=== PATIENT | male | born 1975 | race African-American/Black ===

== ENCOUNTER 2016-10-27 14:35 | Inpatient (IN) | payer OTHER ==
[2016-10-27] VITALS (7 sets, daily range): BP systolic 127–163; BP diastolic 43–95
[~2016-10-27] VITALS: Ht 180.3 cm; Wt 72.6 kg
[~2016-10-27 14:35] MED LIST: HUMULIN R100 UNIT/1 SUBQ; LANTUS SOL100 UNIT/1 SUBQ
[2016-10-27] MEDS ORDERED: Famotidine 20 MG/ 2ML VIAL IVP ONE (15:00)
[2016-10-27 15:29] LABS: MEAN CORPUSCULAR HEMOGLOBIN 28.1 PG (27.0-31.0); MEAN CORPUSCULAR HGB CONC 32.2 G/DL (32.0-36.0); MEAN CORPUSCULAR VOLUME 87 FL (80-99); MEAN PLATELET VOLUME 9.2 FL (6.5-10.1); PLATELET COUNT 334 K/UL (150-450); RED BLOOD COUNT 6.33 M/UL (4.70-6.10); RED CELL DISTRIBUTION WIDTH 12.8 % (11.6-14.8); WHITE BLOOD COUNT 18.2 K/UL (4.8-10.8)
[2016-10-27 16:36] LABS: ABG PCO2 18.4 mmHg (35.0-45.0)
[2016-10-27 16:37] LABS: ABG ALLEN TEST POSITIVE
[2016-10-27 16:39] LABS: ALANINE AMINOTRANSFERASE 29 U/L (3-41); ALBUMIN/GLOBULIN RATIO 1.2 (1.0-2.7); ASPARTATE AMINO TRANSFERASE 14 U/L (5-40); CALCIUM 10.3 mg/dL (8.6-10.2); CHLORIDE 90 mEQ/L (98-107); CREATININE 1.5 mg/dL (0.7-1.2); HEMOLYSIS 0; LIPASE 31 U/L (< 60); MAGNESIUM 2.2 mg/dL (1.7-2.5); SODIUM 136 mEQ/L (135-145); TOTAL PROTEIN 9.4 g/dL (6.6-8.7)
[2016-10-27 16:44] LABS: ANION GAP 37 (5-15); POTASSIUM 5.9 mEQ/L (3.4-4.9)
[2016-10-27 16:51] LABS: CARBON DIOXIDE 9 mEQ/L (20-30); GLOMERULAR FILTRATION RATE > 60 mL/min (>60)
[2016-10-27 16:56] LABS: BAND NEUTROPHILS % (MANUAL) 0 % (0-8); BASOPHILS % (MANUAL) 0 % (0-2); EOSINOPHILS % (MANUAL) 0 % (0-3); LYMPHOCYTES % (MANUAL) 9 % (20-45); NEUTROPHILS % (MANUAL) 89 % (45-75); PLATELET ESTIMATE ADEQUATE; TOTAL CELLS COUNTED 100
[2016-10-27 16:57] LABS: PLATELET MORPHOLOGY NORMAL
--- NOTE | 2016-10-27 17:08 | Emergency Room Report ---
History of Present Illness General Chief Complaint: General Complaint Source: EMS Present Illness HPI 41-year-old male presents ED for evaluation. Patient notes abdominal pain and vomiting x1 day. Per EMS Accu-Chek in the 400s. Patient has history of diabetes and states he is compliant with his medications but states medications recently changed. Pain is epigastric, 7/10, burning, nonradiating. No aggravating or relieving factors. Denies chest pain or shortness of breath. Denies fevers or chills. Denies any other associated symptom Allergies: Coded Allergies: No Known Allergies (Unverified , 10/27/16) Patient History Past Medical History: DM Past Surgical History: none Pertinent Family History: none Social History: Denies: alcohol use, drug use, smoking Immunizations: UTD Reviewed Nursing Documentation: PMH: Agreed, PSxH: Agreed Nursing Documentation-PMH Hx Diabetes: Yes Review of Systems All Other Systems: negative except mentioned in HPI Physical Exam Vital Signs Date Time Temp Pulse Resp B/P Pulse Ox O2 Delivery O2 Flow Rate FiO2 10/27/16 14:31 97.2 100 18 136/80 99 Room Air Sp02 EP Interpretation: reviewed, normal General Appearance: no apparent distress, alert, GCS 15, non-toxic Head: normocephalic, atraumatic Eyes: bilateral eye PERRL, bilateral eye normal inspection ENT: hearing grossly normal, normal pharynx, no angioedema, normal voice Neck: full range of motion, supple/symm/no masses Respiratory: chest non-tender, lungs clear, normal breath sounds, speaking full sentences Cardiovascular #1: regular rate, rhythm, no edema Cardiovascular #2: 2+ carotid (R), 2+ carotid (L), 2+ radial (R), 2+ radial (L) , 2+ dorsalis pedis (R), 2+ dorsalis pedis (L) Gastrointestinal: normal bowel sounds, non tender, soft, non-distended, no guarding, no rebound Rectal: deferred Genitourinary: normal inspection, no CVA tenderness Musculoskeletal: back normal, gait/station normal, normal range of motion, non- tender Neurologic: alert, oriented x3, responsive, motor strength/tone normal, sensory intact, speech normal Psychiatric: judgement/insight normal, memory normal, mood/affect normal, no suicidal/homicidal ideation Reflexes: 3+ bicep (R), 3+ bicep (L), 3+ tricep (R), 3+ tricep (L), 3+ knee (R) , 3+ knee (L) Skin: normal color, no rash, warm/dry, well hydrated Lymphatic: no adenopathy Procedures Critical Care Time Critical Care Time i. I feel this is a highly complex case requiring extensive working including EKG/Rhythm strip, Xray/CT/US, Blood/urine lab work, repeat exams while in ED, and administration of strong opiates/narcotics for pain control, admission to hospital or close patient follow up. Total time: 30 min bedside evaluation and treatment excludes procedures (EKG). Reason for critical care: Hyperglycemia, vomiting, DKA Possible complications: hypotension, hypertension, CO, shock, arrhythmias, metabolic acidosis, end organ damage, respiratory failure. Interventions: Labs, IV fluids, EKG, insulin bolus, insulin drip Course: Patient brought in for vomiting, elevated Accu-Chek. Patient given IV fluids, Pepcid, Zofran. Glucose greater than 400 with elevated anion gap, low bicarbonate. Positive ketones. ABG shows acidosis. Insulin bolus given. Insulin drip started Consultations: nursing staff, EMS, family Performed by: Dr Cordova Tolerated well condition = critical j. because of unstable vital signs this patient had a condition that could potentially threaten life or limb. I feel this is a critical patient who required my full attention while patient was considered critical. Total Critical Care Time excluding procedures was greater than 35 minutes Medical Decision Making Diagnostic Impression: Primary Impression: DKA (diabetic ketoacidoses) Qualified Codes: E13.10 - Other specified diabetes mellitus with ketoacidosis without coma Additional Impression: Gastritis Qualified Codes: K29.01 - Acute gastritis with bleeding ER Course Hospital Course 41-year-old male presenting to ED with vomiting, elevated accuceck Differential diagnoses include: ETOH/drug ingestion, sepsis, DKA Clinical course Patient placed on stretcher. On air sampling and monitoring. After initial history and physical I ordered labs, 2 L of IV fluids, pecpid, zofran Labs-glucose greater than 400, anion gap elevated, bicarbonate low, Leukocytosis noted. ABG shows acidosis. + ketones Given 2 L of IV fluids, 2 more liters are ordered and insulin drip started. Case discussed with Dr. Newman and he agreed to accept the patient to his service for further care and support i. I feel this is a highly complex case requiring extensive working including EKG/Rhythm strip, Xray/CT/US, Blood/urine lab work, repeat exams while in ED, and administration of strong opiates/narcotics for pain control, admission to hospital or close patient follow up. j. because of unstable vital signs this patient had a condition that could potentially threaten life or limb. I feel this is a critical patient who required my full attention while patient was considered critical. Total Critical Care Time excluding procedures was greater than 35 minutes diagnosis - DKA, gastritis admitted to ICU in critical condition Labs Test 10/27/16 15:00 10/27/16 16:09 10/27/16 16:26 White Blood Count 18.2 K/UL (4.8-10.8) Red Blood Count 6.33 M/UL (4.70-6.10) Hemoglobin 17.8 G/DL (14.2-18.0) Hematocrit 55.3 % (42.0-52.0) Mean Corpuscular Volume 87 FL (80-99) Mean Corpuscular Hemoglobin 28.1 PG (27.0-31.0) Mean Corpuscular Hemoglobin Concent 32.2 G/DL (32.0-36.0) Red Cell Distribution Width 12.8 % (11.6-14.8) Platelet Count 334 K/UL (150-450) Mean Platelet Volume 9.2 FL (6.5-10.1) Neutrophils (%) (Auto) % (45.0-75.0) Lymphocytes (%) (Auto) % (20.0-45.0) Monocytes (%) (Auto) % (1.0-10.0) Eosinophils (%) (Auto) % (0.0-3.0) Basophils (%) (Auto) % (0.0-2.0) Differential Total Cells Counted 100 Neutrophils % (Manual) 89 % (45-75) Lymphocytes % (Manual) 9 % (20-45) Monocytes % (Manual) 2 % (1-10) Eosinophils % (Manual) 0 % (0-3) Basophils % (Manual) 0 % (0-2) Band Neutrophils 0 % (0-8) Platelet Estimate Adequate Platelet Morphology Normal Red Blood Cell Morphology Normal Sodium Level 136 mEQ/L (135-145) Potassium Level 5.9 mEQ/L (3.4-4.9) Chloride Level 90 mEQ/L (98-107) Carbon Dioxide Level 9 mEQ/L (20-30) Anion Gap 37 (5-15) Blood Urea Nitrogen 18 mg/dL (7-23) Creatinine 1.5 mg/dL (0.7-1.2) Estimat Glomerular Filtration Rate > 60 mL/min (>60) Glucose Level 443 mg/dL (74-106) Calcium Level 10.3 mg/dL (8.6-10.2) Magnesium Level 2.2 mg/dL (1.7-2.5) Total Bilirubin 0.5 mg/dL (0.0-1.2) Aspartate Amino Transf (AST/SGOT) 14 U/L (5-40) Alanine Aminotransferase (ALT/SGPT) 29 U/L (3-41) Alkaline Phosphatase 276 U/L (40-129) Total Protein 9.4 g/dL (6.6-8.7) Albumin 5.3 g/dL (3.5-5.2) Globulin 4.1 g/dL Albumin/Globulin Ratio 1.2 (1.0-2.7) Lipase 31 U/L (< 60) Acetone Level Positive-large (NEGATIVE) Arterial Blood pH 7.127 (7.350-7.450) Arterial Blood Partial Pressure CO2 18.4 mmHg (35.0-45.0) Arterial Blood Partial Pressure O2 112.0 mmHg (75.0-100.0) Arterial Blood HCO3 5.9 mmol/L (22.0-26.0) Arterial Blood Oxygen Saturation 97.0 % (92.0-98.0) Arterial Blood Base Excess -21.0 Dax Test Positive Last Vital Signs Date Time Temp Pulse Resp B/P Pulse Ox O2 Delivery O2 Flow Rate FiO2 10/27/16 15:38 97.8 85 16 163/95 100 Room Air Status: improved Disposition: ADMITTED INPATIENT Condition: Critical Referrals: DASHA GRAFFREFERRING (PCP) ELIECER CORDOVA M.D. Oct 27, 2016 17:08
[2016-10-27] MEDS ORDERED: Morphine Sulfate 4mg/ml Inj IVP PRN (17:45)
[2016-10-27] MEDS ORDERED: LORazepam Inj 2mg/ml 1ml IV PRN (17:45)
[2016-10-27] MEDS ORDERED: Miralax 17gm pkt ORAL PRN (17:45)
[2016-10-27] MEDS ORDERED: Insulin Rate Change 1 Each MISC PRN (17:45)
[2016-10-27] MEDS ORDERED: DuoNeb 0.5-3(2.5)mg/3ml neb HHN PRN (17:45)
[2016-10-27] MEDS ORDERED: Nitroglycerin Subl 0.4mg tab (Bottle Of 25) SL PRN (17:45)
[2016-10-27] MEDS ORDERED: Morphine Sulfate 4mg/ml Inj IVP ONE (17:45)
[2016-10-27] MEDS: Heparin 5000 units/ml inj SUBQ SCH (21:12)
[2016-10-28] VITALS (24 sets, daily range): BP systolic 107–145; BP diastolic 57–79
[2016-10-28 05:10] LABS: BILIRUBIN,DIRECT 0.1 mg/dL (0.1-0.3); PHOSPHORUS 2.2 mg/dL (2.5-4.8)
[2016-10-28 06:11] LABS: ANION GAP 26 (5-15); CALCIUM 10.1 mg/dL (8.6-10.2); CARBON DIOXIDE 12 mEQ/L (20-30); CHLORIDE 102 mEQ/L (98-107); CREATININE 1.2 mg/dL (0.7-1.2); GLOMERULAR FILTRATION RATE > 60 mL/min (>60); HEMOLYSIS 0; SODIUM 140 mEQ/L (135-145)
[2016-10-28] MEDS: Pantoprazole Inj IVP SCH (08:03)
[2016-10-28] MEDS: Heparin 5000 units/ml inj SUBQ SCH ×2 (08:04→21:13)
--- NOTE | 2016-10-28 10:04 | Pulmonolgy Critical Care Note ---
Critical Care - Asmt/Plan Problems: (1) DKA (diabetic ketoacidoses) (2) Gastritis Respiratory: monitor respiratory rate, CXR Renal: F/U I&O, other - change IV fluid to D5 1/2 Ns at 100 cc.hour Gastrointestinal: start feedings Endocrine: monitor blood sugar, continue sliding scale insulin - and insulind drip until anion gap closes Neurologic: PRN Morphine Time Spent (Minutes): 40 Notes Reviewed: assembler skylights, cardio Discussed with: nurses, consultants, case packer and sealerassociate sales manager - Objective Last 24 Hour Vital Signs Date Time Temp Pulse Resp B/P Pulse Ox O2 Delivery O2 Flow Rate FiO2 10/28/16 09:00 77 20 123/69 98 Room Air 10/28/16 08:00 86 10/28/16 08:00 76 19 133/77 98 Room Air 10/28/16 07:00 97.3 80 20 126/73 98 Room Air 10/28/16 06:00 97.4 88 21 133/79 98 Room Air 10/28/16 05:00 87 20 122/69 98 Room Air 10/28/16 04:00 85 20 122/69 98 Room Air 10/28/16 04:00 83 10/28/16 03:00 85 20 133/70 98 Room Air 10/28/16 02:00 85 20 116/66 98 Room Air 10/28/16 01:00 86 18 117/77 98 Room Air 10/28/16 00:00 87 18 136/59 98 Room Air 10/28/16 00:00 90 10/28/16 00:00 97.6 86 18 117/77 98 Room Air 10/27/16 23:00 88 18 138/79 98 Room Air 10/27/16 22:00 98 18 127/77 99 Room Air 10/27/16 21:00 93 19 132/74 100 Room Air 10/27/16 20:00 101 18 147/43 100 Room Air 10/27/16 19:08 107 10/27/16 19:00 97.2 93 18 139/80 100 Room Air 10/27/16 18:52 97.8 72 15 147/74 99 Room Air 10/27/16 18:21 97.8 10/27/16 18:05 97.8 71 15 158/84 99 Room Air 10/27/16 15:38 97.8 85 16 163/95 100 Room Air 10/27/16 14:31 97.2 100 18 136/80 99 Room Air Status: awake HEENT: atraumatic Neck: full ROM Lungs: clear Heart: HR/BP stable, HR/BP unstable Abdomen: soft, non-tender Extremities: no C/C/E Decubiti: location, stage Accucheck: 136 Critical Care - Subjective ICU Day: 2 Condition: critical EKG Rhythm: Sinus Rhythm Fluids: NS 150 cc.hour Drips: insulin drip I&O: Intake and Output 10/27/16 10/28/16 19:00 07:00 Intake Total 0 ml 3653.92 ml Output Total 700 ml Balance 0 ml 2953.92 ml Intake Oral 0 ml IV Total 3653.92 ml Output Urine Total 500 ml Other 200 ml # Voids 1 Labs: Laboratory Tests Test 10/27/16 15:00 10/27/16 16:09 10/27/16 16:26 10/28/16 03:20 White Blood Count 18.2 K/UL (4.8-10.8) H Red Blood Count 6.33 M/UL (4.70-6.10) H Hemoglobin 17.8 G/DL (14.2-18.0) Hematocrit 55.3 % (42.0-52.0) H Mean Corpuscular Volume 87 FL (80-99) Mean Corpuscular Hemoglobin 28.1 PG (27.0-31.0) Mean Corpuscular Hemoglobin Concent 32.2 G/DL (32.0-36.0) Red Cell Distribution Width 12.8 % (11.6-14.8) Platelet Count 334 K/UL (150-450) Mean Platelet Volume 9.2 FL (6.5-10.1) Neutrophils (%) (Auto) % (45.0-75.0) Lymphocytes (%) (Auto) % (20.0-45.0) Monocytes (%) (Auto) % (1.0-10.0) Eosinophils (%) (Auto) % (0.0-3.0) Basophils (%) (Auto) % (0.0-2.0) Differential Total Cells Counted 100 Neutrophils % (Manual) 89 % (45-75) H Lymphocytes % (Manual) 9 % (20-45) L Monocytes % (Manual) 2 % (1-10) Eosinophils % (Manual) 0 % (0-3) Basophils % (Manual) 0 % (0-2) Band Neutrophils 0 % (0-8) Platelet Estimate Adequate Platelet Morphology Normal Red Blood Cell Morphology Normal Sodium Level 136 mEQ/L (135-145) 140 mEQ/L (135-145) Potassium Level 5.9 mEQ/L (3.4-4.9) H 5.0 mEQ/L (3.4-4.9) H Chloride Level 90 mEQ/L (98-107) L 102 mEQ/L (98-107) Carbon Dioxide Level 9 mEQ/L (20-30) *L 12 mEQ/L (20-30) L Anion Gap 37 (5-15) H 26 (5-15) H Blood Urea Nitrogen 18 mg/dL (7-23) 15 mg/dL (7-23) Creatinine 1.5 mg/dL (0.7-1.2) H 1.2 mg/dL (0.7-1.2) Estimat Glomerular Filtration Rate > 60 mL/min (>60) > 60 mL/min (>60) Glucose Level 443 mg/dL (74-106) H 152 mg/dL (74-106) #H Calcium Level 10.3 mg/dL (8.6-10.2) H 10.1 mg/dL (8.6-10.2) Magnesium Level 2.2 mg/dL (1.7-2.5) Total Bilirubin 0.5 mg/dL (0.0-1.2) 0.4 mg/dL (0.0-1.2) Aspartate Amino Transf (AST/SGOT) 14 U/L (5-40) 18 U/L (5-40) Alanine Aminotransferase (ALT/SGPT) 29 U/L (3-41) 22 U/L (3-41) Alkaline Phosphatase 276 U/L (40-129) H 258 U/L (40-129) H Total Protein 9.4 g/dL (6.6-8.7) H 8.0 g/dL (6.6-8.7) Albumin 5.3 g/dL (3.5-5.2) H 4.5 g/dL (3.5-5.2) Globulin 4.1 g/dL Albumin/Globulin Ratio 1.2 (1.0-2.7) Lipase 31 U/L (< 60) Acetone Level Positive-large (NEGATIVE) Arterial Blood pH 7.127 (7.350-7.450) Arterial Blood Partial Pressure CO2 18.4 mmHg (35.0-45.0) *L Arterial Blood Partial Pressure O2 112.0 mmHg (75.0-100.0) H Arterial Blood HCO3 5.9 mmol/L (22.0-26.0) L Arterial Blood Oxygen Saturation 97.0 % (92.0-98.0) Arterial Blood Base Excess -21.0 Dax Test Positive Prothrombin Time 10.0 SEC (9.30-11.50) Prothromb Time International Ratio 1.0 (0.9-1.1) Activated Partial Thromboplast Time 27 SEC (23-33) Phosphorus Level 2.2 mg/dL (2.5-4.8) L Direct Bilirubin 0.1 mg/dL (0.1-0.3) JOESPH WILSON Oct 28, 2016 10:04
[2016-10-28] MEDS: D5 1/2NS 1,000 ML IV SCH ×2 (10:34→21:07)
[2016-10-28] MEDS: Insulin Rate Change 1 Each MISC PRN ×8 (15:15→23:06)
--- NOTE | 2016-10-28 19:00 | Consultation ---
History of Present Illness General Date patient seen: Oct 28, 2016 Chief Complaint: General Complaint Referring physician: Trent Reason for Consultation: Hyperkalemia Present Illness HPI 41-year-old male presents to ED for evaluation. Patient notes abdominal pain and vomiting x1 day. Per EMS Accu-Chek in the 400s. Patient has history of diabetes and states he is compliant with his medications but states medications recently changed. Pain is epigastric, 7/10, burning, nonradiating. No aggravating or relieving factors. Denies chest pain or shortness of breath. Denies fevers or chills. Denies any other associated symptom Allergies: Coded Allergies: No Known Allergies (Unverified , 10/27/16) Medication History Scheduled Insulin Glargine (Lantus), 0 SUBQ BEDTIME, (Reported) Lurasidone Hcl (Latuda), 120 MG PO DAILY, (Reported) Miscellaneous Medications Insulin Regular, Human (Humulin R), 0 SUBQ, (Reported) Patient History Healthcare decision maker N Resuscitation status Full Code Advanced Directive on File No Past Medical/Surgical History Past Medical/Surgical History: (1) Diabetes Review of Systems All Other Systems: negative except mentioned in HPI Physical Exam General Appearance: no apparent distress, alert Lines, tubes and drains: peripheral HEENT: normocephalic, atraumatic Neck: non-tender, normal alignment, supple, normal inspection Respiratory/Chest: normal breath sounds, no respiratory distress Cardiovascular/Chest: normal rate, regular rhythm, no JVD Abdomen: soft, no organomegaly Extremities: normal range of motion, non-tender, normal inspection, no calf tenderness, normal capillary refill Neurologic: alert, oriented x 3, responsive, normal mood/affect Last 24 Hour Vital Signs Date Time Temp Pulse Resp B/P Pulse Ox O2 Delivery O2 Flow Rate FiO2 10/28/16 18:00 75 16 145/77 100 Room Air 10/28/16 17:00 74 17 112/70 100 Room Air 10/28/16 16:00 71 10/28/16 16:00 96.8 71 14 112/70 100 Room Air 10/28/16 15:00 75 15 118/65 100 Room Air 10/28/16 14:00 85 17 138/64 99 Room Air 10/28/16 13:00 73 17 124/69 99 Room Air 10/28/16 12:00 80 10/28/16 12:00 97.5 71 20 124/76 100 Room Air 10/28/16 11:00 76 19 107/57 99 Room Air 10/28/16 10:00 69 20 124/72 99 Room Air 10/28/16 09:00 77 20 123/69 98 Room Air 10/28/16 08:00 86 10/28/16 08:00 76 19 133/77 98 Room Air 10/28/16 07:00 97.3 80 20 126/73 98 Room Air 10/28/16 06:00 97.4 88 21 133/79 98 Room Air 10/28/16 05:00 87 20 122/69 98 Room Air 10/28/16 04:00 85 20 122/69 98 Room Air 10/28/16 04:00 83 10/28/16 03:00 85 20 133/70 98 Room Air 10/28/16 02:00 85 20 116/66 98 Room Air 10/28/16 01:00 86 18 117/77 98 Room Air 10/28/16 00:00 87 18 136/59 98 Room Air 10/28/16 00:00 90 10/28/16 00:00 97.6 86 18 117/77 98 Room Air 10/27/16 23:00 88 18 138/79 98 Room Air 10/27/16 22:00 98 18 127/77 99 Room Air 10/27/16 21:00 93 19 132/74 100 Room Air 10/27/16 20:00 101 18 147/43 100 Room Air 10/27/16 19:08 107 10/27/16 19:00 97.2 93 18 139/80 100 Room Air Intake and Output 10/27/16 10/28/16 19:00 07:00 Intake Total 0 ml 3656.92 ml Output Total 700 ml Balance 0 ml 2956.92 ml Intake Oral 0 ml IV Total 3656.92 ml Output Urine Total 500 ml Other 200 ml # Voids 1 Laboratory Tests Test 10/28/16 03:20 Prothrombin Time 10.0 SEC (9.30-11.50) Prothromb Time International Ratio 1.0 (0.9-1.1) Activated Partial Thromboplast Time 27 SEC (23-33) Sodium Level 140 mEQ/L (135-145) Potassium Level 5.0 mEQ/L (3.4-4.9) H Chloride Level 102 mEQ/L (98-107) Carbon Dioxide Level 12 mEQ/L (20-30) L Anion Gap 26 (5-15) H Blood Urea Nitrogen 15 mg/dL (7-23) Creatinine 1.2 mg/dL (0.7-1.2) Estimat Glomerular Filtration Rate > 60 mL/min (>60) Glucose Level 152 mg/dL (74-106) #H Calcium Level 10.1 mg/dL (8.6-10.2) Phosphorus Level 2.2 mg/dL (2.5-4.8) L Total Bilirubin 0.4 mg/dL (0.0-1.2) Direct Bilirubin 0.1 mg/dL (0.1-0.3) Aspartate Amino Transf (AST/SGOT) 18 U/L (5-40) Alanine Aminotransferase (ALT/SGPT) 22 U/L (3-41) Alkaline Phosphatase 258 U/L (40-129) H Total Protein 8.0 g/dL (6.6-8.7) Albumin 4.5 g/dL (3.5-5.2) Height (Feet): 5 Height (Inches): 11.00 Weight (Pounds): 160 Medications Current Medications Medications (Trade) Dose Ordered Sig/Estrellita Route PRN Reason Start Time Stop Time Status Last Admin Dose Admin Acetaminophen (Tylenol) 650 mg Q4H PRN ORAL T>100.5 10/27/16 17:45 11/26/16 17:44 Albuterol/ Ipratropium (DuoNeb 0.5-3(2.5)mg/3ml) 3 ml Q4H PRN HHN Shortness of Breath 10/27/16 17:45 11/01/16 17:44 Dextrose (Dextrose 50%) PRN PRN IV HYPOGLYCEMIA 10/28/16 13:00 11/27/16 12:59 Dextrose/Sodium Chloride (D5 0.45% NS) 1,000 ml @ 100 mls/hr Q10H IV 10/28/16 11:00 11/27/16 10:59 10/28/16 10:34 Heparin Sodium (Porcine) (Heparin 5000 units/ml) 5,000 units EVERY 12 HOURS SUBQ 10/27/16 21:00 11/26/16 20:59 10/28/16 08:04 Insulin Human Regular (NovoLIN R) 5 units PRN PRN IV BS 200-299 10/28/16 13:00 11/27/16 12:59 Insulin Human Regular (NovoLIN R) 10 units PRN PRN IV BS=>300 10/28/16 13:00 11/27/16 12:59 Insulin Human Regular/Sodium Chloride (NovoLIN R/ Sodium Chloride) 101 ml @ 0 mls/hr Q24H IV 10/28/16 13:17 11/27/16 12:59 10/28/16 13:36 Lorazepam (Ativan 2mg/ml 1ml) 2 mg Q2H PRN IV agitation 10/27/16 17:45 11/03/16 17:44 Miscellaneous Medication 1 ea 1 ea PRN PRN MISC Per rx protocol 10/28/16 13:00 11/27/16 12:59 10/28/16 18:26 Morphine Sulfate (Morphine Sulfate) 4 mg Q4H PRN IVP Severe Pain (Pain Scale 7-10) 10/27/16 17:45 11/03/16 17:44 Nitroglycerin (Ntg) 0.4 mg Q5M PRN SL Prn Chest Pain 10/27/16 17:45 11/26/16 17:44 Ondansetron HCl (Zofran) 4 mg Q6H PRN IVP Nausea & Vomiting 10/27/16 17:45 11/26/16 17:44 10/27/16 22:18 Pantoprazole 40 mg 40 mg DAILY IVP 10/28/16 09:00 11/27/16 08:59 10/28/16 08:03 Polyethylene Glycol (Miralax) 17 gm DAILYPRN PRN ORAL Constipation 10/27/16 17:45 11/26/16 17:44 Assessment/Plan Problem List: (1) Hyperglycemia ICD Codes: R73.9 - Hyperglycemia, unspecified SNOMED: 91470675 (2) DKA (diabetic ketoacidoses) ICD Codes: E13.10 - Other specified diabetes mellitus with ketoacidosis without coma SNOMED: 011491336, [id number] Qualifiers: Qualified Codes: E13.10 - Other specified diabetes mellitus with ketoacidosis without coma (3) Gastritis ICD Codes: K29.70 - Gastritis, unspecified, without bleeding SNOMED: 0715020, [id number] Qualifiers: Qualified Codes: K29.01 - Acute gastritis with bleeding Assessment/Plan Monitor BS Monitor lytes and correct as needed DVT prophylaxis with heparin Diabetic diet AM labs Marika Mckenna N.P. Oct 28, 2016 19:00
--- NOTE | 2016-10-28 22:28 | History and Physical Report ---
DATE OF ADMISSION: 10/27/2016 TIME: 2 p.m. CONSULTANTS: 1. Thomas Newman D.O.. 2. Lorena Reyes M.D. CHIEF COMPLAINT: Weakness, lethargy, and DKA. BRIEF HISTORY: This is a 41-year-old male who lives at home with a history of diabetes, who apparently had been getting weaker for the past week. Yesterday became very weak and came to [place], diagnosed with DKA, weakness, and gastritis, admitted to the ICU for further care. Currently, calm in bed, slightly weak. No other complaint. PAST MEDICAL HISTORY: Diabetes and bipolar. PAST SURGICAL HISTORY: Denies. MEDICATIONS: Insulin NPH, Novolin, dextrose insulin, Protonix, heparin, Ativan, Zofran, MiraLAX, morphine, and Tylenol. ALLERGIES: Denies. SOCIAL HISTORY: No smoking. Occasional alcohol. Positive marijuana use. REVIEW OF SYSTEMS: No chest pain or shortness of breath. No nausea, vomiting or diarrhea. PHYSICAL EXAMINATION: GENERAL: Calm in bed, alert and oriented x3. No acute distress. VITAL SIGNS: Temperature 97 degrees, pulse 85, respiratory rate 17, and blood pressure 130/64. CARDIOVASCULAR: No murmur. LUNGS: Distant and clear. ABDOMEN: Positive bowel sounds. Soft, nontender and nondistended. EXTREMITIES: No clubbing, cyanosis or edema. NEUROLOGIC: The patient moves all extremities, but slightly weak. LABORATORY AND DIAGNOSTIC DATA: White count 18, otherwise CBC is normal. BMP show potassium 5, BUN and creatinine 15/1.2, and glucose 132. INR is 1.0. Urine toxicology show acetone level initially is positive. ASSESSMENT: 1. Diabetic ketoacidosis. 2. Weakness. 3. Gastritis. 4. Leukocytosis. 5. Bipolar. PLAN: Continue pre-medications. Endocrine will follow. Titrate blood sugar. OT/PT. Dietary evaluation. CBC and BMP in the morning. Dr. Pina, Dr. Reyes, Dr. Ghotra, and Dr. Crespo to consult. We will continue to follow the patient. Thomas Newman D.O. DR: ALINE JOB#: [id number] CC:
[2016-10-28] MEDS ORDERED: D5 1/2NS 1000ml IV ONE (22:47)
[2016-10-29] VITALS (24 sets, daily range): BP systolic 111–137; BP diastolic 56–86
[2016-10-29] MEDS: Insulin Rate Change 1 Each MISC PRN ×12 (02:31→22:10)
[2016-10-29 05:15] LABS: BASOPHILS % (AUTO) 1.4 % (0.0-2.0); EOSINOPHILS % (AUTO) 0.7 % (0.0-3.0); LYMPHOCYTES % (AUTO) 26.7 % (20.0-45.0); MEAN CORPUSCULAR HEMOGLOBIN 28.3 PG (27.0-31.0); MEAN CORPUSCULAR HGB CONC 33.6 G/DL (32.0-36.0); MEAN CORPUSCULAR VOLUME 84 FL (80-99); MEAN PLATELET VOLUME 8.8 FL (6.5-10.1); MONOCYTES % (AUTO) 10.1 % (1.0-10.0); NEUTROPHILS % (AUTO) 61.2 % (45.0-75.0); PLATELET COUNT 266 K/UL (150-450); RED BLOOD COUNT 5.03 M/UL (4.70-6.10); RED CELL DISTRIBUTION WIDTH 12.6 % (11.6-14.8)
[2016-10-29 05:27] LABS: PROTHROMBIN TIME 10.4 SEC (9.30-11.50)
[2016-10-29 05:34] LABS: ALANINE AMINOTRANSFERASE 17 U/L (3-41); ALBUMIN/GLOBULIN RATIO 1.5 (1.0-2.7); ANION GAP 23 (5-15); ASPARTATE AMINO TRANSFERASE 22 U/L (5-40); CALCIUM 9.4 mg/dL (8.6-10.2); CARBON DIOXIDE 16 mEQ/L (20-30); CHLORIDE 100 mEQ/L (98-107); GLOMERULAR FILTRATION RATE > 60 mL/min (>60); HEMOLYSIS 3; MAGNESIUM 1.9 mg/dL (1.7-2.5); PHOSPHORUS 2.1 mg/dL (2.5-4.8); POTASSIUM 2.9 mEQ/L (3.4-4.9); SODIUM 139 mEQ/L (135-145); TOTAL PROTEIN 6.5 g/dL (6.6-8.7)
[2016-10-29] MEDS: D5 1/2NS 1,000 ML IV SCH ×2 (07:21→17:01)
--- NOTE | 2016-10-29 07:23 | Critical Care Progress Note ---
Assessment/Plan Assessment/Plan ASSESSMENT DKA DM gastritis REBEKAH leukocytosis e/lyte imbalance ( low K, low P) PLAN OF CARE ICU Insulin drip as per protocol IVF switch to long and short acting when anion gap closed pain management DVT, GI prophylaxis replace lytes endo eval as per PMD case discussed and evaluated by supervising physician Critical Care - Subjective Interval Events: still on insulin drip anion gap trending down,but still elevated bicarb trending up leukocytosis trending down, afebrile K-2.9 and P-2.2 no abdominal pain today Condition: critical IV Access: peripheral EKG Rhythm: Sinus Rhythm IV Fluids: D51/2NS at 100 Drips: Insulin drip 4 u/hr I&O: Intake and Output 10/28/16 10/29/16 19:00 07:00 Intake Total 1509.55 ml 1372 ml Output Total 650 ml 600 ml Balance 859.55 ml 772 ml Intake Oral 420 ml 240 ml IV Total 1089.55 ml 1132 ml Output Urine Total 650 ml 600 ml # Voids 2 1 Critical Care - Objective Last 24 Hour Vital Signs Date Time Temp Pulse Resp B/P Pulse Ox O2 Delivery O2 Flow Rate FiO2 10/29/16 06:00 65 14 113/76 100 Room Air 10/29/16 05:00 64 14 126/72 100 Room Air 10/29/16 04:00 98.6 70 16 117/64 100 Room Air 10/29/16 04:00 70 10/29/16 03:00 66 16 128/70 100 Room Air 10/29/16 02:00 64 16 117/68 100 Room Air 10/29/16 01:00 72 14 111/59 100 Room Air 10/29/16 00:00 71 10/29/16 00:00 98.5 71 16 118/69 100 Room Air 10/28/16 23:00 62 20 118/66 100 Room Air 10/28/16 22:00 75 16 130/69 100 Room Air 10/28/16 21:00 67 16 128/63 100 Room Air 10/28/16 20:00 98.6 69 14 118/73 100 Room Air 10/28/16 20:00 69 10/28/16 19:17 74 18 Room Air 10/28/16 19:00 67 16 129/65 100 Room Air 10/28/16 18:00 75 16 145/77 100 Room Air 10/28/16 17:00 74 17 112/70 100 Room Air 10/28/16 16:00 71 10/28/16 16:00 96.8 71 14 112/70 100 Room Air 10/28/16 15:00 75 15 118/65 100 Room Air 10/28/16 14:00 85 17 138/64 99 Room Air 10/28/16 13:00 73 17 124/69 99 Room Air 10/28/16 12:00 80 10/28/16 12:00 97.5 71 20 124/76 100 Room Air 10/28/16 11:00 76 19 107/57 99 Room Air 10/28/16 10:00 69 20 124/72 99 Room Air 10/28/16 09:00 77 20 123/69 98 Room Air 10/28/16 08:00 86 10/28/16 08:00 76 19 133/77 98 Room Air Status: awake, alert Condition: critical HEENT: atraumatic Neck: full ROM, no JVD Lungs: normal breath sounds, clear Heart: normal rate, regular rhythm Abdomen: soft, non-tender Extremities: no C/C/E Micro: Microbiology Date/Time Source Procedure Growth Status 10/27/16 18:28 Rectum VRE Culture - Final NO VANCOMYCIN RESISTANT ENTEROCOCCUS ... Complete Accucheck: 100 Stef (Saira Dawkins NP Oct 29, 2016 07:23
[2016-10-29] MEDS ORDERED: Potassium Phosphate 30 MM in NS 275 ML IV ONE (09:00)
[2016-10-29] MEDS: Pantoprazole Inj IVP SCH (09:08)
[2016-10-29] MEDS: Heparin 5000 units/ml inj SUBQ SCH ×2 (09:10→20:58)
--- NOTE | 2016-10-29 15:04 | General Progress Note ---
Assessment/Plan Problem List: (1) DKA (diabetic ketoacidoses) ICD Codes: E13.10 - Other specified diabetes mellitus with ketoacidosis without coma SNOMED: 712049853, [id number] Qualifiers: Qualified Codes: E13.10 - Other specified diabetes mellitus with ketoacidosis without coma (2) Gastritis ICD Codes: K29.70 - Gastritis, unspecified, without bleeding SNOMED: 6885667, 75709589 Qualifiers: Qualified Codes: K29.01 - Acute gastritis with bleeding (3) Diabetes ICD Codes: E11.9 - Type 2 diabetes mellitus without complications SNOMED: 75977069 (4) Hyperglycemia ICD Codes: R73.9 - Hyperglycemia, unspecified SNOMED: 80894078 Status: stable, progressing, tolerating diet Assessment/Plan ot pt diet bs control cbc bmp am tele if clear Subjective Constitutional: Reports: weakness Allergies: Coded Allergies: No Known Allergies (Unverified , 10/27/16) All Systems: reviewed and negative except above Subjective calm in bed in icu Objective Last 24 Hour Vital Signs Date Time Temp Pulse Resp B/P Pulse Ox O2 Delivery O2 Flow Rate FiO2 10/29/16 14:00 79 15 133/69 100 Room Air 10/29/16 13:00 67 15 122/86 100 Room Air 10/29/16 12:00 98.4 64 14 127/65 100 Room Air 10/29/16 12:00 64 10/29/16 11:00 63 15 124/72 100 Room Air 10/29/16 10:00 70 15 125/73 100 Room Air 10/29/16 09:00 72 15 120/73 100 Room Air 10/29/16 08:00 61 14 126/72 100 Room Air 10/29/16 08:00 68 10/29/16 07:29 70 18 Room Air 10/29/16 07:00 98.5 61 15 129/79 100 Room Air 10/29/16 06:00 65 14 113/76 100 Room Air 10/29/16 05:00 64 14 126/72 100 Room Air 10/29/16 04:00 98.6 70 16 117/64 100 Room Air 10/29/16 04:00 70 10/29/16 03:00 66 16 128/70 100 Room Air 10/29/16 02:00 64 16 117/68 100 Room Air 10/29/16 01:00 72 14 111/59 100 Room Air 10/29/16 00:00 71 10/29/16 00:00 98.5 71 16 118/69 100 Room Air 10/28/16 23:00 62 20 118/66 100 Room Air 10/28/16 22:00 75 16 130/69 100 Room Air 10/28/16 21:00 67 16 128/63 100 Room Air 10/28/16 20:00 98.6 69 14 118/73 100 Room Air 10/28/16 20:00 69 10/28/16 19:17 74 18 Room Air 10/28/16 19:00 67 16 129/65 100 Room Air 10/28/16 18:00 75 16 145/77 100 Room Air 10/28/16 17:00 74 17 112/70 100 Room Air 10/28/16 16:00 71 10/28/16 16:00 96.8 71 14 112/70 100 Room Air Intake and Output 10/28/16 10/29/16 19:00 07:00 Intake Total 1509.55 ml 1476 ml Output Total 650 ml 600 ml Balance 859.55 ml 876 ml Intake Oral 420 ml 240 ml IV Total 1089.55 ml 1236 ml Output Urine Total 650 ml 600 ml # Voids 2 1 Laboratory Tests 10/29/16 04:00: White Blood Count 12.0H, Red Blood Count 5.03, Hemoglobin 14.2, Hematocrit 42.4 , Mean Corpuscular Volume 84, Mean Corpuscular Hemoglobin 28.3, Mean Corpuscular Hemoglobin Concent 33.6, Red Cell Distribution Width 12.6, Platelet Count 266, Mean Platelet Volume 8.8, Neutrophils (%) (Auto) 61.2, Lymphocytes (% ) (Auto) 26.7, Monocytes (%) (Auto) 10.1H, Eosinophils (%) (Auto) 0.7, Basophils (%) (Auto) 1.4, Prothrombin Time 10.4, Prothromb Time International Ratio 1.0, Activated Partial Thromboplast Time 29, Sodium Level 139, Potassium Level 2.9L, Chloride Level 100, Carbon Dioxide Level 16L, Anion Gap 23H, Blood Urea Nitrogen 12, Creatinine 1.0, Estimat Glomerular Filtration Rate > 60, Glucose Level 126H, Calcium Level 9.4, Phosphorus Level 2.1L, Magnesium Level 1.9, Total Bilirubin 0.6, Aspartate Amino Transf (AST/SGOT) 22, Alanine Aminotransferase (ALT/SGPT) 17, Alkaline Phosphatase 183H, Total Protein 6.5L, Albumin 3.9, Globulin 2.6, Albumin/Globulin Ratio 1.5 Height (Feet): 5 Height (Inches): 11.00 Weight (Pounds): 160 General Appearance: alert EENT: normal ENT inspection Neck: non-tender, normal alignment, supple Cardiovascular: normal peripheral pulses, normal rate, regular rhythm Respiratory/Chest: chest wall non-tender, lungs clear, normal breath sounds Abdomen: normal bowel sounds, non tender, soft Extremities: normal inspection Edema: no edema noted Arm (L), no edema noted Arm (R), no edema noted Leg (L), no edema noted Leg (R), no edema noted Pedal (L), no edema noted Pedal (R), no edema noted Generalized Neurologic: responsive, motor weakness Skin: normal pigmentation, warm/dry KASEY HOLLOWAY Oct 29, 2016 15:04
[2016-10-29] MEDS ORDERED: LATUDA120 MG PO (15:25)
[2016-10-29] MEDS ORDERED: Tubing IV Secondary IV ONE (17:27)
[2016-10-29] MEDS ORDERED: D5 1/2NS 1000ml IV ONE (17:27)
--- NOTE | 2016-10-29 22:30 | Nephrology Progress Note ---
Assessment/Plan Problem List: (1) Hypoglycemia (2) DKA (diabetic ketoacidoses) Assessment: resolved. (3) Hypomagnesemia (4) Diabetes (5) Hyperglycemia Plan monitor labs. cont IVF. Subjective Subjective s/p DKA. better. Objective Objective Last 24 Hour Vital Signs Date Time Temp Pulse Resp B/P Pulse Ox O2 Delivery O2 Flow Rate FiO2 10/29/16 22:00 66 14 126/73 100 Room Air 10/29/16 21:00 68 14 128/72 100 Room Air 10/29/16 20:00 64 10/29/16 20:00 97.0 69 15 118/60 100 Room Air 10/29/16 19:00 66 14 122/56 100 Room Air 10/29/16 18:00 70 14 126/56 100 Room Air 10/29/16 17:00 70 14 123/60 100 Room Air 10/29/16 16:00 97.0 73 15 137/71 100 Room Air 10/29/16 16:00 66 10/29/16 15:00 69 14 137/71 100 Room Air 10/29/16 14:00 79 15 133/69 100 Room Air 10/29/16 13:00 67 15 122/86 100 Room Air 10/29/16 12:00 98.4 64 14 127/65 100 Room Air 10/29/16 12:00 64 10/29/16 11:00 63 15 124/72 100 Room Air 10/29/16 10:00 70 15 125/73 100 Room Air 10/29/16 09:00 72 15 120/73 100 Room Air 10/29/16 08:00 61 14 126/72 100 Room Air 10/29/16 08:00 68 10/29/16 07:29 70 18 Room Air 10/29/16 07:00 98.5 61 15 129/79 100 Room Air 10/29/16 06:00 65 14 113/76 100 Room Air 10/29/16 05:00 64 14 126/72 100 Room Air 10/29/16 04:00 98.6 70 16 117/64 100 Room Air 10/29/16 04:00 70 10/29/16 03:00 66 16 128/70 100 Room Air 10/29/16 02:00 64 16 117/68 100 Room Air 10/29/16 01:00 72 14 111/59 100 Room Air 10/29/16 00:00 71 10/29/16 00:00 98.5 71 16 118/69 100 Room Air 10/28/16 23:00 62 20 118/66 100 Room Air Intake and Output 10/28/16 10/29/16 19:00 07:00 Intake Total 1509.55 ml 1476 ml Output Total 650 ml 600 ml Balance 859.55 ml 876 ml Intake Oral 420 ml 240 ml IV Total 1089.55 ml 1236 ml Output Urine Total 650 ml 600 ml # Voids 2 1 Laboratory Tests 10/29/16 04:00: White Blood Count 12.0H, Red Blood Count 5.03, Hemoglobin 14.2, Hematocrit 42.4 , Mean Corpuscular Volume 84, Mean Corpuscular Hemoglobin 28.3, Mean Corpuscular Hemoglobin Concent 33.6, Red Cell Distribution Width 12.6, Platelet Count 266, Mean Platelet Volume 8.8, Neutrophils (%) (Auto) 61.2, Lymphocytes (% ) (Auto) 26.7, Monocytes (%) (Auto) 10.1H, Eosinophils (%) (Auto) 0.7, Basophils (%) (Auto) 1.4, Prothrombin Time 10.4, Prothromb Time International Ratio 1.0, Activated Partial Thromboplast Time 29, Sodium Level 139, Potassium Level 2.9L, Chloride Level 100, Carbon Dioxide Level 16L, Anion Gap 23H, Blood Urea Nitrogen 12, Creatinine 1.0, Estimat Glomerular Filtration Rate > 60, Glucose Level 126H, Calcium Level 9.4, Phosphorus Level 2.1L, Magnesium Level 1.9, Total Bilirubin 0.6, Aspartate Amino Transf (AST/SGOT) 22, Alanine Aminotransferase (ALT/SGPT) 17, Alkaline Phosphatase 183H, Total Protein 6.5L, Albumin 3.9, Globulin 2.6, Albumin/Globulin Ratio 1.5 Height (Feet): 5 Height (Inches): 11.00 Weight (Pounds): 160 General Appearance: no apparent distress Cardiovascular: normal rate, regular rhythm Respiratory/Chest: lungs clear Abdomen: non tender, soft Extremities: non-pitting Neurologic: alert GLADYS PURCELL Oct 29, 2016 22:30
[2016-10-30] VITALS (15 sets, daily range): BP systolic 118–157; BP diastolic 68–85
[2016-10-30] MEDS: Insulin Rate Change 1 Each MISC PRN ×3 (01:23→07:03)
[2016-10-30] MEDS: D5 1/2NS 1,000 ML IV SCH ×3 (03:09→13:48)
[2016-10-30 05:42] LABS: BASOPHILS % (AUTO) 1.3 % (0.0-2.0); EOSINOPHILS % (AUTO) 1.9 % (0.0-3.0); LYMPHOCYTES % (AUTO) 35.5 % (20.0-45.0); MEAN CORPUSCULAR HEMOGLOBIN 28.4 PG (27.0-31.0); MEAN CORPUSCULAR VOLUME 84 FL (80-99); MEAN PLATELET VOLUME 8.7 FL (6.5-10.1); NEUTROPHILS % (AUTO) 50.3 % (45.0-75.0); PLATELET COUNT 265 K/UL (150-450); RED BLOOD COUNT 4.84 M/UL (4.70-6.10); RED CELL DISTRIBUTION WIDTH 12.2 % (11.6-14.8); WHITE BLOOD COUNT 7.4 K/UL (4.8-10.8)
[2016-10-30 06:04] LABS: ANION GAP 20 (5-15); CALCIUM 9.1 mg/dL (8.6-10.2); CARBON DIOXIDE 20 mEQ/L (20-30); CHLORIDE 102 mEQ/L (98-107); CREATININE 0.8 mg/dL (0.7-1.2); GLOMERULAR FILTRATION RATE > 60 mL/min (>60); HEMOLYSIS 6; MAGNESIUM 1.5 mg/dL (1.7-2.5); POTASSIUM 2.9 mEQ/L (3.4-4.9); SODIUM 142 mEQ/L (135-145)
[2016-10-30 07:05] LABS: HEMOGLOBIN A1C 10.2 % (< 6.0)
[2016-10-30] MEDS ORDERED: POTASSIUM CHLORIDE IV SCH (07:30)
[2016-10-30] MEDS ORDERED: D5 IV SCH (07:30)
[2016-10-30] MEDS ORDERED: [UNRECOGNIZED DRUG - OTHER] IV SCH (07:30)
[2016-10-30] MEDS: Heparin 5000 units/ml inj SUBQ SCH ×2 (08:46→21:14)
[2016-10-30] MEDS: Pantoprazole Inj IVP SCH (08:46)
[2016-10-30] MEDS ORDERED: D5 1/2NS 1000ml IV ONE ×2 (09:03→17:03)
--- NOTE | 2016-10-30 09:52 | General Progress Note ---
Assessment/Plan Problem List: (1) DKA (diabetic ketoacidoses) ICD Codes: E13.10 - Other specified diabetes mellitus with ketoacidosis without coma SNOMED: 141545238, 88875052 Qualifiers: Qualified Codes: E13.10 - Other specified diabetes mellitus with ketoacidosis without coma (2) Gastritis ICD Codes: K29.70 - Gastritis, unspecified, without bleeding SNOMED: 7902384, 99158414 Qualifiers: Qualified Codes: K29.01 - Acute gastritis with bleeding (3) Diabetes ICD Codes: E11.9 - Type 2 diabetes mellitus without complications SNOMED: 65303644 (4) Hyperglycemia ICD Codes: R73.9 - Hyperglycemia, unspecified SNOMED: 36760621 Status: stable, progressing, tolerating diet Assessment/Plan ot pt diet bs control cbc bmp am tele if clear Subjective Constitutional: Reports: weakness Allergies: Coded Allergies: No Known Allergies (Unverified , 10/27/16) All Systems: reviewed and negative except above Subjective calm in bed in icu Objective Last 24 Hour Vital Signs Date Time Temp Pulse Resp B/P Pulse Ox O2 Delivery O2 Flow Rate FiO2 10/30/16 08:00 77 10/30/16 07:28 71 18 Room Air 10/30/16 07:00 78 12 142/82 100 Room Air 10/30/16 06:00 59 12 150/79 100 Room Air 10/30/16 05:00 59 13 153/82 100 Room Air 10/30/16 04:00 98.1 78 17 153/83 100 Room Air 10/30/16 04:00 73 10/30/16 03:00 68 13 130/75 100 Room Air 10/30/16 02:00 90 13 128/83 100 Room Air 10/30/16 01:00 67 14 130/70 100 Room Air 10/30/16 00:00 68 10/30/16 00:00 98.1 68 13 128/68 100 Room Air 10/29/16 23:00 67 14 124/58 100 Room Air 10/29/16 22:00 66 14 126/73 100 Room Air 10/29/16 21:00 68 14 128/72 100 Room Air 10/29/16 20:00 64 10/29/16 20:00 97.0 69 15 118/60 100 Room Air 10/29/16 19:00 66 14 122/56 100 Room Air 10/29/16 18:00 70 14 126/56 100 Room Air 10/29/16 17:00 70 14 123/60 100 Room Air 10/29/16 16:00 97.0 73 15 137/71 100 Room Air 10/29/16 16:00 66 10/29/16 15:00 69 14 137/71 100 Room Air 10/29/16 14:00 79 15 133/69 100 Room Air 10/29/16 13:00 67 15 122/86 100 Room Air 10/29/16 12:00 98.4 64 14 127/65 100 Room Air 10/29/16 12:00 64 10/29/16 11:00 63 15 124/72 100 Room Air 10/29/16 10:00 70 15 125/73 100 Room Air Intake and Output 10/29/16 10/30/16 19:00 07:00 Intake Total 1838.08 ml 1331.5 ml Output Total 1000 ml 950 ml Balance 838.08 ml 381.5 ml Intake Oral 350 ml 80 ml IV Total 1488.08 ml 1251.5 ml Output Urine Total 1000 ml 950 ml # Voids 2 1 Laboratory Tests 10/30/16 05:10: White Blood Count 7.4, Red Blood Count 4.84, Hemoglobin 13.7L, Hematocrit 40.4L , Mean Corpuscular Volume 84, Mean Corpuscular Hemoglobin 28.4, Mean Corpuscular Hemoglobin Concent 34.0, Red Cell Distribution Width 12.2, Platelet Count 265, Mean Platelet Volume 8.7, Neutrophils (%) (Auto) 50.3, Lymphocytes (% ) (Auto) 35.5, Monocytes (%) (Auto) 11.0H, Eosinophils (%) (Auto) 1.9, Basophils (%) (Auto) 1.3, Sodium Level 142, Potassium Level 2.9L, Chloride Level 102, Carbon Dioxide Level 20, Anion Gap 20H, Blood Urea Nitrogen 6L, Creatinine 0.8, Estimat Glomerular Filtration Rate > 60, Glucose Level 118H, Hemoglobin A1c 10.2H, Calcium Level 9.1, Phosphorus Level 2.0L, Magnesium Level 1.5L Height (Feet): 5 Height (Inches): 11.00 Weight (Pounds): 160 General Appearance: alert EENT: normal ENT inspection Neck: normal alignment Cardiovascular: normal peripheral pulses, normal rate, regular rhythm Respiratory/Chest: chest wall non-tender, lungs clear, normal breath sounds Abdomen: normal bowel sounds, non tender, soft Extremities: normal inspection Edema: no edema noted Arm (L), no edema noted Arm (R), no edema noted Leg (L), no edema noted Leg (R), no edema noted Pedal (L), no edema noted Pedal (R), no edema noted Generalized Neurologic: responsive, motor weakness Skin: normal pigmentation, warm/dry KASEY HOLLOWAY Oct 30, 2016 09:52
--- NOTE | 2016-10-30 10:14 | Pulmonolgy Critical Care Note ---
Critical Care - Asmt/Plan Assessment/Plan: ASSESSMENT DKA DM gastritis REBEKAH leukocytosis e/lyte imbalance ( low K, low P) schizophrenia PLAN OF CARE dc Insulin drip decrease IVF rate start on short and long acting insulin [id number] not at goal replace K, Mg, P and check in am pain management DVT, GI prophylaxis endo eval as per PMD discretion transfer to [place] at home on Latuda, pharmacy does not carry it; ? psych eval for possible susbtitution and case discussed and evaluated by supervising physician Hematologic: transfuse if hgb<8.5 Critical Care - Objective Last 24 Hour Vital Signs Date Time Temp Pulse Resp B/P Pulse Ox O2 Delivery O2 Flow Rate FiO2 10/30/16 10:00 72 18 137/81 100 Room Air 10/30/16 09:00 71 17 137/85 100 Room Air 10/30/16 08:00 98.3 73 17 143/77 100 Room Air 10/30/16 08:00 77 10/30/16 07:28 71 18 Room Air 10/30/16 07:00 78 12 142/82 100 Room Air 10/30/16 06:00 59 12 150/79 100 Room Air 10/30/16 05:00 59 13 153/82 100 Room Air 10/30/16 04:00 98.1 78 17 153/83 100 Room Air 10/30/16 04:00 73 10/30/16 03:00 68 13 130/75 100 Room Air 10/30/16 02:00 90 13 128/83 100 Room Air 10/30/16 01:00 67 14 130/70 100 Room Air 10/30/16 00:00 68 10/30/16 00:00 98.1 68 13 128/68 100 Room Air 10/29/16 23:00 67 14 124/58 100 Room Air 10/29/16 22:00 66 14 126/73 100 Room Air 10/29/16 21:00 68 14 128/72 100 Room Air 10/29/16 20:00 64 10/29/16 20:00 97.0 69 15 118/60 100 Room Air 10/29/16 19:00 66 14 122/56 100 Room Air 10/29/16 18:00 70 14 126/56 100 Room Air 10/29/16 17:00 70 14 123/60 100 Room Air 10/29/16 16:00 97.0 73 15 137/71 100 Room Air 10/29/16 16:00 66 10/29/16 15:00 69 14 137/71 100 Room Air 10/29/16 14:00 79 15 133/69 100 Room Air 10/29/16 13:00 67 15 122/86 100 Room Air 10/29/16 12:00 98.4 64 14 127/65 100 Room Air 10/29/16 12:00 64 10/29/16 11:00 63 15 124/72 100 Room Air Objective: Status: awake, alert, responsive Condition: improving HEENT: atraumatic Neck: full ROM, no JVD Lungs: normal breath sounds, clear Heart: normal rate, regular rhythm Abdomen: soft, non-tender Extremities: no C/C/E Micro: Microbiology Date/Time Source Procedure Growth Status 10/27/16 18:28 Nasal Nares MRSA Culture - Final NO METHICILLIN RESISTANT STAPH AUREUS... Complete 10/27/16 18:28 Rectum VRE Culture - Final NO VANCOMYCIN RESISTANT ENTEROCOCCUS ... Complete Accucheck: 123 Critical Care - Subjective Interval Events: leukocytosis resolved bicarb up to normal BS controlled refusing accucheck low K, Mg, P Condition: improving IV Access: peripheral EKG Rhythm: Sinus Rhythm I&O: Intake and Output 10/29/16 10/30/16 19:00 07:00 Intake Total 1838.08 ml 1331.5 ml Output Total 1000 ml 950 ml Balance 838.08 ml 381.5 ml Intake Oral 350 ml 80 ml IV Total 1488.08 ml 1251.5 ml Output Urine Total 1000 ml 950 ml # Voids 2 1 Saira Finch NP (Vanchtein) Oct 30, 2016 10:14
[2016-10-30] MEDS ORDERED: NovoLOG Insulin Flexpen SUBQ SCH ×3 (11:30→16:50)
[2016-10-30] MEDS ORDERED: Nitroglycerin Subl 0.4mg tab (Bottle Of 25) SL PRN (14:00)
[2016-10-30] MEDS ORDERED: Miralax 17gm pkt ORAL PRN (14:00)
[2016-10-30] MEDS ORDERED: DuoNeb 0.5-3(2.5)mg/3ml neb HHN PRN (14:00)
[2016-10-30] MEDS ORDERED: Morphine Sulfate 4mg/ml Inj IVP PRN (14:00)
[2016-10-30] MEDS ORDERED: LORazepam Inj 2mg/ml 1ml IV PRN (14:00)
[2016-10-30] MEDS ORDERED: NS 275ml ONE (17:03)
[2016-10-30] MEDS ORDERED: Tubing IV Secondary IV ONE (17:03)
[2016-10-30] MEDS: Potassium Phosphate 30 MM in NS 275 ML IV ONE ×2 (17:12→18:30)
[2016-10-30] MEDS: NovoLOG Insulin Flexpen SUBQ SCH ×2 (17:13→21:14)
[2016-10-30] MEDS ORDERED: Levemir Flexpen SUBQ SCH ×2 (18:00)
[2016-10-31] VITALS: BP 140/84
[2016-10-31 04:00] VITALS: BP 138/79
--- NOTE | 2016-10-31 05:29 | Consultation ---
DATE OF CONSULTATION: 10/30/2016 ENDOCRINOLOGY CONSULTATION CONSULTING PHYSICIAN: Andriy Pina M.D. REFERRING PHYSICIAN: Thomas Newman D.O. REASON FOR CONSULTATION: . HISTORY OF PRESENT ILLNESS: I was asked to see this 41-year-old black male by Dr. Thomas Newman in endocrinology consultation for evaluation and management for type 2 diabetes mellitus out of control and DKA . . The patient presents with DKA control and the patient is transferred from ICU to the floor to better control. . PAST MEDICAL HISTORY: Negative. PAST SURGICAL HISTORY: Negative. FAMILY HISTORY: Noncontributory. PHYSICAL EXAMINATION: GENERAL: The patient is in no acute distress. VITAL SIGNS: Blood pressure 132/74, pulse 83, respiratory rate 18, and temperature . HEENT: . NECK: . LUNGS: Clear. CARDIOVASCULAR: Heart sounds are regular. ABDOMEN: Soft. Bowel sounds normal. EXTREMITIES: No edema. NEUROLOGIC: . ASSESSMENT AND PLAN: 1. Diabetes control. 2. Diabetic ketoacidosis . 3. q.12 hours. . Andriy Pina M.D. DR: JODI JOB#: [id number] CC:
[2016-10-31] MEDS: D5 1/2NS 1,000 ML IV SCH ×2 (06:07)
[2016-10-31] MEDS: NovoLOG Insulin Flexpen SUBQ SCH ×4 (06:09→12:33)
[2016-10-31] MEDS ORDERED: NovoLOG Insulin Flexpen SUBQ SCH (06:30)
[2016-10-31 08:00] VITALS: BP 147/88
[2016-10-31] MEDS: Heparin 5000 units/ml inj SUBQ SCH (08:41)
[2016-10-31] MEDS ORDERED: Levemir Flexpen SUBQ SCH ×2 (09:00)
[2016-10-31] MEDS ORDERED: Pantoprazole Inj IVP SCH (09:00)
[2016-10-31 09:15] LABS: BASOPHILS % (AUTO) 1.4 % (0.0-2.0); EOSINOPHILS % (AUTO) 2.9 % (0.0-3.0); LYMPHOCYTES % (AUTO) 37.6 % (20.0-45.0); MEAN CORPUSCULAR HEMOGLOBIN 27.7 PG (27.0-31.0); MEAN CORPUSCULAR HGB CONC 32.9 G/DL (32.0-36.0); MEAN CORPUSCULAR VOLUME 84 FL (80-99); MEAN PLATELET VOLUME 8.5 FL (6.5-10.1); MONOCYTES % (AUTO) 11.4 % (1.0-10.0); NEUTROPHILS % (AUTO) 46.7 % (45.0-75.0); PLATELET COUNT 244 K/UL (150-450); RED BLOOD COUNT 4.81 M/UL (4.70-6.10); RED CELL DISTRIBUTION WIDTH 12.2 % (11.6-14.8); WHITE BLOOD COUNT 6.9 K/UL (4.8-10.8)
[2016-10-31 09:30] LABS: ANION GAP 13 (5-15); CALCIUM 8.9 mg/dL (8.6-10.2); CARBON DIOXIDE 27 mEQ/L (20-30); CHLORIDE 102 mEQ/L (98-107); CREATININE 0.8 mg/dL (0.7-1.2); GLOMERULAR FILTRATION RATE > 60 mL/min (>60); HEMOLYSIS 2; PHOSPHORUS 3.1 mg/dL (2.5-4.8); POTASSIUM 3.4 mEQ/L (3.4-4.9); SODIUM 142 mEQ/L (135-145)
[2016-10-31] MEDS ORDERED: Potassium Phosphate 30 MM in NS 275 ML IV ONE (11:00)
[2016-10-31 11:50] VITALS: BP 145/86
--- NOTE | 2016-10-31 13:54 | General Progress Note ---
Assessment/Plan Problem List: (1) DKA (diabetic ketoacidoses) ICD Codes: E13.10 - Other specified diabetes mellitus with ketoacidosis without coma SNOMED: 380614125, 77974069 Qualifiers: Qualified Codes: E13.10 - Other specified diabetes mellitus with ketoacidosis without coma (2) Gastritis ICD Codes: K29.70 - Gastritis, unspecified, without bleeding SNOMED: 4028251, 58943657 Qualifiers: Qualified Codes: K29.01 - Acute gastritis with bleeding (3) Diabetes ICD Codes: E11.9 - Type 2 diabetes mellitus without complications SNOMED: 91073328 (4) Hyperglycemia ICD Codes: R73.9 - Hyperglycemia, unspecified SNOMED: 91767685 Status: stable, progressing, tolerating diet Assessment/Plan ot pt diet bs control dc home Subjective Constitutional: Reports: weakness Allergies: Coded Allergies: No Known Allergies (Unverified , 10/27/16) All Systems: reviewed and negative except above Subjective calm in bed Objective Last 24 Hour Vital Signs Date Time Temp Pulse Resp B/P Pulse Ox O2 Delivery O2 Flow Rate FiO2 10/31/16 11:50 97.0 69 20 145/86 100 Room Air 10/31/16 09:45 72 18 Room Air 10/31/16 08:00 97.7 81 18 147/88 99 Room Air 10/31/16 04:00 98.1 74 20 138/79 100 Room Air 10/31/16 00:00 97.7 98 20 140/84 98 Room Air 10/30/16 20:00 98.2 73 20 157/85 99 Room Air 10/30/16 19:54 68 18 Room Air 10/30/16 16:00 98.2 80 20 140/68 99 Room Air Intake and Output 10/30/16 10/31/16 19:00 07:00 Intake Total 1712 ml 100 ml Output Total 1700 ml Balance 12 ml 100 ml Intake Oral 1100 ml IV Total 612 ml 100 ml Output Urine Total 1700 ml Laboratory Tests 10/31/16 08:45: White Blood Count 6.9, Red Blood Count 4.81, Hemoglobin 13.3L, Hematocrit 40.5L , Mean Corpuscular Volume 84, Mean Corpuscular Hemoglobin 27.7, Mean Corpuscular Hemoglobin Concent 32.9, Red Cell Distribution Width 12.2, Platelet Count 244, Mean Platelet Volume 8.5, Neutrophils (%) (Auto) 46.7, Lymphocytes (% ) (Auto) 37.6, Monocytes (%) (Auto) 11.4H, Eosinophils (%) (Auto) 2.9, Basophils (%) (Auto) 1.4, Sodium Level 142, Potassium Level 3.4, Chloride Level 102, Carbon Dioxide Level 27, Anion Gap 13, Blood Urea Nitrogen 4L, Creatinine 0.8, Estimat Glomerular Filtration Rate > 60, Glucose Level 100, Calcium Level 8.9, Phosphorus Level 3.1, Magnesium Level 2.0 Height (Feet): 5 Height (Inches): 11.00 Weight (Pounds): 160 General Appearance: alert EENT: normal ENT inspection Neck: normal alignment Cardiovascular: normal peripheral pulses, normal rate, regular rhythm Respiratory/Chest: chest wall non-tender, lungs clear, normal breath sounds Abdomen: normal bowel sounds, non tender, soft Extremities: normal inspection Edema: no edema noted Arm (L), no edema noted Arm (R), no edema noted Leg (L), no edema noted Leg (R), no edema noted Pedal (L), no edema noted Pedal (R), no edema noted Generalized Neurologic: responsive, motor weakness Skin: normal pigmentation, warm/dry KASEY HOLLOWAY Oct 31, 2016 13:54
[2016-10-31] MEDS ORDERED: Tubing IV Secondary IV ONE (15:59)
--- NOTE | 2016-11-01 13:59 | Discharge Summary ---
Discharge Summary Hospital Course Date of Admission Oct 27, 2016 at 17:10 Date of Discharge Oct 31, 2016 at 16:00 Admitting Diagnosis DKA HPI Fantasma Page is a 41 year old male who was admitted on Oct 27, 2016 at 17:10 for Diabetic Ketoacidosis Hospital Course dc summary #[id number] Discharge Medications Continued Medications: Insulin Glargine (Lantus) 100 Unit/1 Ml Insuln.pen 0 SUBQ BEDTIME, #1 EA 0 Refills Insulin Regular, Human (Humulin R) 100 Unit/1 Ml Vial 0 SUBQ, VIAL Lurasidone Hcl (Latuda) 120 Mg Tablet 120 MG PO DAILY, TAB Discharge Condition Upon Discharge: stable Discharge Disposition Patient was discharged to Home () Discharge Diagnoses: Stef (Karla)Saira NP Nov 01, 2016 13:59
--- NOTE | 2016-11-02 03:08 | Discharge Summary 2 SIG ---
DATE OF ADMISSION: 10/27/2016 DATE OF DISCHARGE: 10/31/2016 REASON FOR ADMISSION: 41-year-old male presented to the emergency department for evaluation. The patient reported abdominal pain and vomiting for one day. Accu-Chek was in 400 per paramedics. The patient has a history of diabetes and reported compliance with the medication regimen, but he stated that his medications were recently changed. Pain described as epigastric, burning, nonradiating 7/10 on a scale 1 to 10. He denied chest pain or shortness of breath. Denied fever or chills. Troponin was negative. The patient was afebrile. Blood pressure was stable. Workup revealed leukocytosis of 18.2. ABG revealed metabolic acidosis. Anion gap elevated. Bicarbonate low. urine + 3 ketones. Glucose above 400. The patient was given two liters of fluids. The patient started on insulin drip. Potassium was 5.9. The patient transferred to ICU for further management. ADMITTING DIAGNOSES: 1. Diabetic ketoacidosis. 2. Gastritis. HOSPITAL STAY: The patient was in ICU. The patient was on insulin drip per protocol and IV fluids. When bicarb level returned to normal and anion gap was borderline, insulin drip was discontinued. The patient started on short and long acting insulin regimen. Hemoglobin A1c -10.2, clearly not a goal. Electrolytes (potassium, magnesium, and phosphorus) imbalances were addressed and corrected, stable. [facility] followed the patient and optimize further short and long acting insulin dosage. Diabetic teaching provided. Diabetic educational material provided. Creatinine down to 0.8. REBEKAH resolved, likely due to dehydration. DVT and GI prophylaxis provided. Abdominal pain resolved, possible gastritis. Pain management provided. The patient at home takes Latuda, which hospital pharmacy does not carry. Leukocytosis resolved. Blood sugar stable. Bicarbonate level stable. Anion gap closed, The patient was recommended to be compliant with medication regimen. The patient was stable for discharge. DISCHARGE DIAGNOSES: DKA Diabetes out of control Possible gastritis Acute kidney injury- resolved Leukocytosis -resolved Electrolyte imbalance ( K, Mg, P) - resolved Schizophrenia DISCHARGE MEDICATIONS : see medications reconciliation list DISCHARGE INSTRUCTIONS : Patient was discharged home. Reinforce compliance with insulin. Follow up with primary care provider. Thomas Newman D.O. Saira Finch N.P. (Vanchtein) DR: Aly JOB#: [id number] CC: STEPHENIE
== END 2016-10-31 16:00 | disposition home or self-care (01) | DRG 420 ==
LOC: ENRESERVDT → ENRESERVTM → EDBD 14:35 → EMR 15:09 → ICU 17:10 → EDBEDREQ 17:52 → 3E 10-30 12:46
DX: E13.10 Other specified diabetes mellitus with ketoacidosis without coma (principal); N17.9 Acute kidney failure, unspecified; E83.39 Other disorders of phosphorus metabolism; E83.42 Hypomagnesemia; E87.5 Hyperkalemia; K29.70 Gastritis, unspecified, without bleeding; F31.9 Bipolar disorder, unspecified; Z79.4 Long term (current) use of insulin; F20.9 Schizophrenia, unspecified; E86.0 Dehydration
CPT/HCPCS: 36415; 36600; 80048; 80053; 80076; 82009; 82803; 82962; 83036; 83690; 83735; 84100; 85007; 85025; 85610; 85730; 87081; 94664; J1815; J2405; S5561